=== PATIENT | male | born 1975 | race African-American/Black ===

== ENCOUNTER 2019-11-30 13:10 | Emergency (ER) | payer MEDICAID ==
[~2019-11-30] VITALS: Ht 172.7 cm; Wt 80.0 kg
[2019-11-30] MEDS ORDERED: SODIUM CHLORIDE 0.9% 1,000 ML IV ONE ×2 (16:09)
[2019-11-30] MEDS ORDERED: LORAZEPAM 2MG/ML CPJ IV STA (16:09)
[2019-11-30] MEDS ORDERED: PERMETHRIN 5% CREAM 60GM TOP ONE (16:15)
[2019-11-30] MEDS ORDERED: PIPERONYL/PYRETHRINS (RID)120 ML SHAMPOO TOP ONE (16:15)
[2019-11-30 19:08] LABS: HEMATOCRIT. 33.5 % (42.0-52.0); HEMOGLOBIN. 10.8 g/dL (14.0-18.0); MEAN CORPUSCULAR HEMOGLOBIN 28.9 pg (28.0-32.0); MEAN CORPUSCULAR VOLUME 89.3 fL (80.0-94.0); MEAN PLATELET VOLUME 7.5 fl (7.4-10.4); PLATELET 290 x1000/uL (130-400); RED BLOOD CELL COUNT 3.75 mill/uL (4.7-6.1); RED CELL DISTRIBUTION WIDTH 13.9 % (11.6-14.6)
[2019-11-30 19:10] LABS: CHLORIDE 111 mEq/L (98-107)
[2019-11-30 19:14] LABS: ETHANOL BLOOD < 10 mg/dL
[2019-11-30 19:18] LABS: CREATINE KINASE 796 IU/L (39-308)
[2019-11-30 20:53] LABS: *AMPHETAMINES SCREEN URINE NEGATIVE (NEGATIVE); *BARBITURATES SCREEN URINE NEGATIVE (NEGATIVE); *BENZODIAZEPINES SCREEN URINE NEGATIVE (NEGATIVE); *COCAINE SCREEN URINE NEGATIVE (NEGATIVE); METHADONE URINE SCREEN NEGATIVE (NEGATIVE)
[2019-11-30 20:54] LABS: CANNABINOID URINE SCREEN PRESUMTIVE POSITIVE (NEGATIVE); OPIATES URINE SCREEN NEGATIVE (NEGATIVE); PHENCYCLIDINE URINE SCREEN PRESUMTIVE POSITIVE (NEGATIVE)
[2019-11-30 21:08] LABS: PLATELET ESTIMATE NORMAL
[2019-12-01 10:19] VITALS: BP 121/86
== END 2019-12-01 10:58 | disposition home or self-care (01) ==
LOC: EDBD 13:10 → ER 13:10
DX: G92 Toxic encephalopathy (principal); F16.10 Hallucinogen abuse, uncomplicated; M62.82 Rhabdomyolysis; Z59.0 Homelessness; Z79.899 Other long term (current) drug therapy
CPT/HCPCS: 36415; 70450; 71045; 80053; 80305; 80307; 80320; 80329; 82140; 82550; 83690; 84443; 85025; 93005; 96361; 96374; 99284; J2060; J7030; G0480

== ENCOUNTER 2020-09-13 18:26 | Emergency (ER) | payer MEDICAID ==
[~2020-09-13] VITALS: Ht 177.8 cm; Wt 70.0 kg
[2020-09-13] MEDS ORDERED: SODIUM CHLORIDE 0.9% 1,000 ML IV ONE (19:00)
[2020-09-13 19:32] LABS: BASOPHILS % 0.3 % (0.0-2.0); EOSINOPHILS % 9.4 % (0.0-5.0); HEMATOCRIT. 27.2 % (42.0-52.0); HEMOGLOBIN. 8.6 g/dL (14.0-18.0); LYMPHOCYTES % 23.2 % (20.0-50.0); MEAN CORPUSCULAR HEMOGLOBIN 25.1 pg (28.0-32.0); MEAN CORPUSCULAR VOLUME 79.6 fL (80.0-94.0); MEAN PLATELET VOLUME 7.7 fl (7.4-10.4); MONOCYTES % 10.1 % (2.0-8.0); PLATELET 352 x1000/uL (130-400); RED BLOOD CELL COUNT 3.42 mill/uL (4.7-6.1)
[2020-09-13 19:42] LABS: CHLORIDE 110 mEq/L (98-107)
[2020-09-13] MEDS ORDERED: LORAZEPAM 2MG/ML CPJ IV ONE (19:45)
[2020-09-13 19:46] LABS: CLARITY URINE CLEAR (CLEAR); COLOR URINE YELLOW (YELLOW); KETONES URINE NEGATIVE (NEGATIVE); LEUKOCYTE ESTERASE URINE TRACE (NEGATIVE); NITRITE URINE NEGATIVE (NEGATIVE); OCCULT BLOOD URINE 2+ (NEGATIVE); PH URINE 7.5 (4.5-8.0); PROTEIN URINE NEGATIVE (NEGATIVE); SPECIFIC GRAVITY URINE 1.027 (1.005-1.030)
[2020-09-13 19:47] LABS: ETHANOL BLOOD < 10 mg/dL
[2020-09-13 20:06] LABS: *AMPHETAMINES SCREEN URINE NEGATIVE (NEGATIVE); *BARBITURATES SCREEN URINE NEGATIVE (NEGATIVE); *BENZODIAZEPINES SCREEN URINE NEGATIVE (NEGATIVE); *COCAINE SCREEN URINE NEGATIVE (NEGATIVE); METHADONE URINE SCREEN NEGATIVE (NEGATIVE)
[2020-09-13 20:07] LABS: CANNABINOID URINE SCREEN PRESUMTIVE POSITIVE (NEGATIVE); OPIATES URINE SCREEN NEGATIVE (NEGATIVE); PHENCYCLIDINE URINE SCREEN PRESUMTIVE POSITIVE (NEGATIVE)
[2020-09-13 23:45] VITALS: BP 121/69
== END 2020-09-13 23:55 | disposition home or self-care (01) ==
LOC: ER 18:26
DX: R41.82 Altered mental status, unspecified (principal); F16.10 Hallucinogen abuse, uncomplicated; I49.9 Cardiac arrhythmia, unspecified
CPT/HCPCS: 36415; 70450; 80053; 80305; 80307; 80320; 80329; 81003; 85025; 93005; 96361; 96374; 99285; J2060; J7030; G0480